=== PATIENT | male | born 1990 | race Caucasian/White ===

== ENCOUNTER 2018-07-06 18:34 | Emergency (ER) | payer OTHER ==
[~2018-07-06] VITALS: Ht 172.7 cm; Wt 86.2 kg
[2018-07-06 18:43] VITALS: BP 133/77
[2018-07-06 21:15] VITALS: BP 133/77
== END 2018-07-06 21:15 | disposition home or self-care (01) ==
LOC: MED 18:34
DX: J06.9 Acute upper respiratory infection, unspecified (principal)
CPT/HCPCS: 36415; 71045; 87804; 99285; Q0092

== ENCOUNTER 2021-02-22 07:23 | Emergency (ER) | payer OTHER ==
[~2021-02-22] VITALS: Ht 172.7 cm; Wt 78.0 kg
[2021-02-22 07:25] VITALS: BP 115/74
[2021-02-22] MEDS: HYDROcodone/APAP 5/325 MG 1 TAB TAB PO ONE (07:58)
[2021-02-22] MEDS: ONDANSETRON 4 MG ODT PO ONE (07:58)
[2021-02-22 09:21] LABS: APPEARANCE,URINE HAZY (CLEAR); BILIRUBIN,URINE 1+ (NEGATIVE); BLOOD, URINE 2+ (NEGATIVE); COLOR,URINE YELLOW (YELLOW); LEUKOCYTE ESTERASE ,URINE NEGATIVE (NEGATIVE); NITRITE, URINE NEGATIVE (NEGATIVE); UGLUCOSE NEGATIVE (NEGATIVE)
[2021-02-22 09:34] LABS: WBC,URINE 0-5 /HPF (0-5)
[2021-02-22] MEDS ORDERED: LIDOCAINE MPF 1% 5 ML ONE (10:04)
[2021-02-22] MEDS ORDERED: cefTRIAXone 500 MG VIAL ONE (10:04)
[2021-02-22] MEDS: DOXYCYCLINE 100 MG CAP PO SCH (10:11)
[2021-02-22] MEDS: cefTRIAXone 500 MG in LIDOCAINE MPF 1% 1 ML IM ONE (10:12)
[2021-02-22] MEDS ORDERED: ACET-8386 PO (10:16)
[2021-02-22] MEDS ORDERED: IBUP-2213 PO (10:16)
[2021-02-22] MEDS ORDERED: DOXY100C9 PO (10:16)
[2021-02-22 10:25] VITALS: BP 115/74
== END 2021-02-22 10:25 | disposition home or self-care (01) ==
LOC: MED 07:23
DX: N50.811 Right testicular pain (principal); N45.1 Epididymitis
CPT/HCPCS: 36415; 76870; 81001; 87086; 87491; 96372; 99284; J0696; J2001; Q0162

== ENCOUNTER 2021-04-14 15:13 | Emergency (ER) | payer OTHER ==
[~2021-04-14] VITALS: Ht 172.7 cm; Wt 79.0 kg
[~2021-04-14 15:13] MED LIST: ACET-8386 PO; DOXY100C9 PO; IBUP-2213 PO
[2021-04-14 15:23] VITALS: BP 126/74
--- NOTE | 2021-04-14 15:32 | NUR ---
PT AMBULATED TO BED 9
--- NOTE | 2021-04-14 15:33 | NUR ---
LISSA OREILLY AT PT BEDSIDE FOR FURTHER EVALUATION.
--- NOTE | 2021-04-14 15:40 | NUR ---
30 Y/O MALE C/O LEFT LEG PAIN 06/12 DESCRIBES ACHING/THROBBING X1WEEK. DENIES N/V, DENIES FEVER/CHILLS. AREA IS RED, NOTED CLEAR DRAINAGE. DENIES PMH NKA
[2021-04-14] MEDS ORDERED: CEPH-588 PO (16:23)
[2021-04-14] MEDS ORDERED: IBUP-1842 PO (16:23)
--- NOTE | 2021-04-14 16:27 | NUR ---
Patient discharged with v/s stable. Written and verbal after care instructions given and explained. Patient alert, oriented and verbalized understanding of instructions. Ambulatory with steady gait. All questions addressed prior to discharge. ID band removed. Patient advised to follow up with PMD. Rx of Cephalexin and Ibuprofen given. Patient educated on indication of medication including possible reaction and side effects. Opportunity to ask questions provided and answered.
== END 2021-04-14 16:27 | disposition home or self-care (01) ==
LOC: MED 15:13
DX: L02.416 Cutaneous abscess of left lower limb (principal); Z79.899 Other long term (current) drug therapy
CPT/HCPCS: 73590; 99283

== ENCOUNTER 2023-11-15 17:32 | Emergency (ER) | payer SELFPAY ==
[~2023-11-15] VITALS: Ht 172.7 cm; Wt 87.7 kg
[~2023-11-15 17:32] MED LIST changes: -ACET-8386 PO; +ACET-8905 PO; +CEPH-588 PO; +DOXY-690 PO; -DOXY100C9 PO; +IBUP-1842 PO
[2023-11-15 17:35] VITALS: BP 145/96; PULSE 133; RESP 21; TEMP 97.8; O2SAT 99
[2023-11-15] MEDS: predniSONE 20 MG TAB PO ONE (18:28)
[2023-11-15] MEDS: ACETAMINOPHEN 325 MG TAB PO ONE (18:28)
[2023-11-15] MEDS: methocarbamoL 500 MG TAB PO STA (18:28)
[2023-11-15] MEDS: LIDOCAINE 5% 1 EA PATCH TP ONE (18:31)
[2023-11-15] MEDS: KETOROLAC 30 MG/ML VIAL IM ONE (18:33)
[2023-11-15] MEDS ORDERED: LID5T TP (18:49)
[2023-11-15] MEDS ORDERED: METH-1681 PO (18:49)
[2023-11-15] MEDS ORDERED: IBUP-2213 PO (18:49)
[2023-11-15] MEDS ORDERED: PRED20TA5 PO (18:49)
== END 2023-11-15 19:03 | disposition home or self-care (01) ==
LOC: MED 17:32
DX: M54.17 Radiculopathy, lumbosacral region (principal); F17.200 Nicotine dependence, unspecified, uncomplicated; F15.90 Other stimulant use, unspecified, uncomplicated; Z98.890 Other specified postprocedural states; Z79.899 Other long term (current) drug therapy
CPT/HCPCS: 96372; 99284; J1885; J7512